=== PATIENT | female | born 1985 | race Caucasian/White ===

== ENCOUNTER 2022-12-28 04:29 | Emergency (ER) | payer MEDICAID, OTHER ==
[~2022-12-28] VITALS: Ht 152.4 cm; Wt 59.0 kg
[2022-12-28 04:32] VITALS: BP 129/74
[2022-12-28] MEDS ORDERED: NAP5EC PO (07:33)
[2022-12-28] MEDS ORDERED: CYCL5TAB PO (07:33)
== END 2022-12-28 07:56 | disposition home or self-care (01) ==
LOC: ER 04:49 → EDBD 04:49 → ER 07:56
DX: S80.812A Abrasion, left lower leg, initial encounter (principal); R07.89 Other chest pain; V49.49XA Driver injured in collision with other motor vehicles in traffic accident, initial encounter; Y93.89 Activity, other specified; Y92.89 Other specified places as the place of occurrence of the external cause; Y99.8 Other external cause status
CPT/HCPCS: 73030; 73590; 81025; 99284